=== PATIENT | female | born 1955 | race Caucasian/White ===

== ENCOUNTER 2019-02-10 14:32 | Emergency (ER) | payer BC ==
[~2019-02-10] VITALS: Ht 167.6 cm; Wt 83.9 kg
[2019-02-10] MEDS ORDERED: DICYCLOMINE 20 MG/2 ML AMPUL. IM ONE ×2 (15:15→16:30)
[2019-02-10] MEDS ORDERED: IV NORMAL SALINE 1000ML BAG 1,000 ML IV ONE (15:15)
[2019-02-10] MEDS ORDERED: fentaNYL PF VIAL 100 MCG/2 ML VIAL IV ONE (15:15)
--- NOTE | 2019-02-10 15:22 | PHYS DOC ---
Adult General Chief Complaint Chief Complaint: ABDOMINAL PAIN HPI HPI 63-year-old female presents to ER via POV from a local urgent care after she was evaluated for lower abdominal pain complaints. Patient had KUB done with report of "mild air-fluid levels suggestive of potential obstruction" and UA was negative. Per patient's notes from [facility] urgent care- patient reports her pain started on Wednesday and she's had intermittent nausea denying any vomiting episodes. Patient reports pain extends from side to side of the lower abdomen she denies any urinary or vaginal symptoms. Patient reports pain increases with movements, walking, sitting/standing, and when she hits bumps in her car. Patient denies pain radiates. Patient states pain is sharp and cramping. Patient denies any fever, chest pain or palpitations, or shortness of air. Patient states her pain does increase following meals approximately 30 minutes to one hour after eating and following bowel movements. Patient denies any dark tarry or bloody stools. Patient reports she had regular bowel movement today. Review of Systems Review of Systems Constitutional: Denies fever or chills [] Eyes: Denies change in visual acuity, redness, or eye pain [] HENT: Denies nasal congestion or sore throat [] Respiratory: Denies cough or shortness of breath [] Cardiovascular: No additional information not addressed in HPI [] GI: Denies vomiting, bloody stools or diarrhea. Reports intermittent nausea and lower abd pain from side to side w/increased pain in low/mid suprapubic abd : Denies dysuria or hematuria [] Musculoskeletal: Denies back pain or joint pain [] Integument: Denies rash or skin lesions [] Neurologic: Denies headache, focal weakness or sensory changes [] Endocrine: Denies polyuria or polydipsia [] All other systems were reviewed and found to be within normal limits, except as documented in this note. Current Medications Current Medications Current Medications Medications (Trade) Dose Ordered Sig/Jhoana Start Time Stop Time Status Last Admin Dose Admin Dicyclomine HCl (Bentyl) 20 mg 1X ONCE 02/10/19 16:30 02/10/19 16:32 DC 02/10/19 16:30 20 MG Fentanyl Citrate (Fentanyl 2ml Vial) 25 mcg 1X ONCE 02/10/19 15:15 02/10/19 15:17 DC 02/10/19 16:00 25 MCG Info (CONTRAST GIVEN -- Rx MONITORING) 1 each PRN DAILY PRN 02/10/19 16:45 02/10/19 18:43 DC Iohexol (Omnipaque 300 Mg/ml) 75 ml 1X ONCE 02/10/19 16:45 02/10/19 16:46 DC 02/10/19 16:41 75 ML Sodium Chloride 1,000 ml @ 1,000 mls/hr 1X ONCE 02/10/19 15:15 02/10/19 16:14 DC 02/10/19 16:00 1,000 MLS/HR Allergies Allergies Allergies Coded Allergies Type Severity Reaction Last Updated Verified No Known Drug Allergies 02/10/19 No Physical Exam Physical Exam Constitutional: Well developed, well nourished, no acute distress, non-toxic appearance. [] HENT: Normocephalic, atraumatic, oropharynx moist, no oral exudates, nose normal. [] Eyes: Pupils equal, conjunctiva normal, no discharge. [] Neck: Normal range of motion, no tenderness, supple, no stridor. [] Cardiovascular: Heart rate regular rhythm, no murmur [] Lungs & Thorax: Bilateral breath sounds clear to auscultation- resp. equal/nonlabored Abdomen: Bowel sounds normal, soft- no distention/rigidity, tender across mid to lower abd- no focal area or rebound, no masses, no pulsatile masses. [] Skin: Warm, dry, no erythema, no rash. [] Back: No tenderness, no CVA tenderness. [] Extremities: No tenderness, no cyanosis, no clubbing, ROM intact, no edema. [] Neurologic: Alert and oriented X 3, normal motor function, normal sensory function, no focal deficits noted. [] Psychologic: Affect normal, judgement normal, mood normal. [] Current Patient Data Vital Signs Vital Signs Date Time Temp Pulse Resp B/P (MAP) Pulse Ox O2 Delivery O2 Flow Rate FiO2 02/10/19 18:27 90 19 138/69 (92) 97 Room Air 02/10/19 14:53 99.4 99.4 Lab Values Laboratory Tests Test 02/10/19 15:50 02/10/19 17:00 White Blood Count 11.1 x10^3/uL (4.0-11.0) H Red Blood Count 4.12 x10^6/uL (3.50-5.40) Hemoglobin 13.0 g/dL (12.0-15.5) Hematocrit 38.2 % (36.0-47.0) Mean Corpuscular Volume 93 fL (79-100) Mean Corpuscular Hemoglobin 32 pg (25-35) Mean Corpuscular Hemoglobin Concent 34 g/dL (31-37) Red Cell Distribution Width 12.9 % (11.5-14.5) Platelet Count 168 x10^3/uL (140-400) Neutrophils (%) (Auto) 73 % (31-73) Lymphocytes (%) (Auto) 18 % (24-48) L Monocytes (%) (Auto) 7 % (0-9) Eosinophils (%) (Auto) 3 % (0-3) Basophils (%) (Auto) 1 % (0-3) Neutrophils # (Auto) 8.0 x10^3/uL (1.8-7.7) H Lymphocytes # (Auto) 2.0 x10^3/uL (1.0-4.8) Monocytes # (Auto) 0.7 x10^3/uL (0.0-1.1) Eosinophils # (Auto) 0.3 x10^3/uL (0.0-0.7) Basophils # (Auto) 0.1 x10^3/uL (0.0-0.2) Sodium Level 139 mmol/L (136-145) Potassium Level 3.5 mmol/L (3.5-5.1) Chloride Level 102 mmol/L (98-107) Carbon Dioxide Level 26 mmol/L (21-32) Anion Gap 11 (6-14) Blood Urea Nitrogen 18 mg/dL (7-20) Creatinine 0.8 mg/dL (0.6-1.0) Estimated GFR (Cockcroft-Gault) 72.7 BUN/Creatinine Ratio 23 (6-20) H Glucose Level 100 mg/dL (70-99) H Lactic Acid Level 1.3 mmol/L (0.4-2.0) Calcium Level 9.2 mg/dL (8.5-10.1) Total Bilirubin 0.4 mg/dL (0.2-1.0) Aspartate Amino Transferase (AST) 22 U/L (15-37) Alanine Aminotransferase (ALT) 38 U/L (14-59) Alkaline Phosphatase 82 U/L (46-116) Total Protein 7.8 g/dL (6.4-8.2) Albumin 3.8 g/dL (3.4-5.0) Albumin/Globulin Ratio 1.0 (1.0-1.7) Lipase 244 U/L (73-393) Urine Collection Type Void Urine Color Yellow Urine Clarity Clear Urine pH 6.0 Urine Specific [place] 1.015 Urine Protein Negative mg/dL (NEG-TRACE) Urine Glucose (UA) Negative mg/dL (NEG) Urine Ketones (Stick) Negative mg/dL (NEG) Urine Blood Negative (NEG) Urine Nitrite Negative (NEG) Urine Bilirubin Negative (NEG) Urine Urobilinogen Dipstick 0.2 mg/dL (0.2 mg/dL) Urine Leukocyte Esterase Negative (NEG) Urine RBC 0 /HPF (0-2) Urine WBC 0 /HPF (0-4) Urine Squamous Epithelial Cells Few /LPF Urine Bacteria 0 /HPF (0-FEW) Laboratory Tests 02/10/19 15:50 Laboratory Tests 02/10/19 15:50 EKG EKG [] Radiology/Procedures Radiology/Procedures PROCEDURE: CT ABD PELV W/ IV CONTRST ONLY PQRS Compliance Statement: One or more of the following individualized dose reduction techniques were utilized for this examination: 1. Automated exposure control 2. Adjustment of the mA and/or kV according to patient size 3. Use of iterative reconstruction technique CT abdomen/pelvis with contrast 02/10/2019 3:23 PM INDICATION: Abdominal pain. COMPARISON: None available TECHNIQUE: Multiple axial CT images of the abdomen and pelvis were obtained after the intravenous administration of 75 mL Omnipaque 300. Coronal and sagittal reformats are provided. FINDINGS: Left breast prosthesis is identified. There is bibasilar subsegmental atelectasis. Heart size is within normal limits. Geographic areas of hypoattenuation are identified within the right hepatic lobe. There is no distortion of the hepatic vessels. Consideration may be given for geographic areas of hepatic steatosis. Further evaluation with MRI may be of benefit to assess for any underlying neoplastic etiology. Splenic calcifications are present. Adrenal glands, pancreas and gallbladder are normal in appearance. The abdominal aorta is normal in course and caliber. There are no pathologically enlarged lymph nodes in the abdomen and pelvis. There is no abdominal free fluid. There is no free intraperitoneal air. There is mild circumferential wall thickening with pericolic inflammatory changes associated with moderate diverticulosis of the proximal sigmoid colon compatible with diverticulitis. There is no free intraperitoneal air or associated peridiverticular abscess. Oral contrast was administered. Opacified bowel loops demonstrate normal mucosal fold pattern. Appendix is normal in appearance. The kidneys enhance symmetrically. There is no suspicious renal mass. There is no hydronephrosis. There are no suspected calculi within the kidneys, ureters or urinary bladder. Urinary bladder is within normal limits given degree of distention. Uterus and adnexa are normal by CT. No suspicious osseous normality is identified. IMPRESSION: 1. Findings are compatible with mild diverticulitis of the sigmoid colon. No peridiverticular abscess or microperforation. 2. Geographic areas of hypoattenuation involving the hepatic parenchyma are nonspecific and may be associated with geographic fatty infiltration of the liver. Neoplastic etiologies less likely however further evaluation with MRI may be of benefit to confirm. Electronically signed by: Italia Austin MD (02/10/2019 4:57 PM) [id number] DICTATED and SIGNED BY: ITALIA AUSTIN MD DATE: 02/10/19 1657 Course & Med Decision Making Course & Med Decision Making Pertinent Labs and Imaging studies reviewed. (See chart for details) Patient was evaluated in the ER for complaints of lower abdominal pain. Patient had labs and CT obtained. Results were discussed with patient and her . WBCs normal limits 11.1 no bands. Lactic acid normal limits at 1.3. UA negative for infection. CT abd/pelvis with findings of diverticulitis with no free air or associated abscess and appendix was negative- this was discussed. Patient reports she has had some improvement in pain since receiving treatments in the ER. She has been afebrile and remains nontoxic in appearance. Offered admission for further care and monitoring however patient feels comfortable with home discharge with plans to follow-up outpatient. Discharge instructions and plans were discussed with patient with her at bedside. Will provide prescriptions for Flagyl and Cipro. Will also provide nausea and pain medication. Patient advised on need to follow-up with GI for reevaluation and further care along with her primary care physician. Will provide GI referral information on discharge paperwork. At time of discharge discussion patient was in no visible distress education provided on signs and symptoms to return to ER for. Informed patient of CT findings of area on liver which would need f/u- her LFTs were NL and she was having no rt sided abd pain. Dragon Disclaimer Dragon Disclaimer This electronic medical record was generated, in whole or in part, using a voice recognition dictation system. Departure Departure Impression: Primary Impression: Diverticulitis Additional Impression: Abdominal pain Disposition: 01 HOME, SELF-CARE Condition: STABLE Referrals: HAYDER BAINS MD Patient Instructions: Abdominal Pain, Diverticulitis Additional Instructions: Follow up with your primary care physician and or a gastrointestinal doctor for reevaluation and further care. Drink plenty of water. Avoid alcohol or other food/meds which can be irritating to the GI tract which does include NSAIDs. You can take [id number] probiotics while taking the antibiotics as directed on container. Scripts Metronidazole (FLAGYL) 500 Mg Tablet 1 TAB PO BID, #14 TAB 0 Refills Avoid alcohol while taking this medication and for 3 days following completion of entire prescription Prov: NOMI KING APRN 02/10/19 Ciprofloxacin Hcl (CIPRO) 500 Mg Tablet 1 TAB PO BID, #14 TAB 0 Refills Prov: NOMI KING APRN 02/10/19 Hydrocodone/Apap 5-325 (NORCO 5-325 TABLET) 1 Each Tablet 1 TAB PO PRN Q6HRS PRN for PAIN, #12 TAB 0 Refills Use for severe pain Prov: NOMI KING APRN 02/10/19 Dicyclomine Hcl (DICYCLOMINE HCL) 10 Mg Capsule 1 CAP PO PRN Q6HRS PRN for PAIN, #14 CAP 0 Refills Prov: NOMI KING APRN 02/10/19 Ondansetron (ONDANSETRON ODT) 4 Mg Tab.rapdis 1 TAB PO PRN Q6-8HRS PRN for NAUSEA, #12 TAB 0 Refills Prov: NOMI KING APRN 02/10/19 Problem Qualifiers NOMI KING APRN Feb 10, 2019 15:22
[2019-02-10 16:13] LABS: BASO # 0.1 x10^3/uL (0.0-0.2); BASO % 1 % (0-3); EOS # 0.3 x10^3/uL (0.0-0.7); EOS % 3 % (0-3); HEMATOCRIT 38.2 % (36.0-47.0); LYMPH % 18 % (24-48); MEAN CORPUSCULAR HEMOGLOBIN 32 pg (25-35); MEAN CORPUSCULAR HGB CONC 34 g/dL (31-37); MEAN CORPUSCULAR VOLUME 93 fL (79-100); MONO # 0.7 x10^3/uL (0.0-1.1); MONO % 7 % (0-9); NEUT % 73 % (31-73); PLATELET COUNT 168 x10^3/uL (140-400); RED BLOOD COUNT 4.12 x10^6/uL (3.50-5.40); RED CELL DISTRIBUTION WIDTH 12.9 % (11.5-14.5); WHITE BLOOD COUNT 11.1 x10^3/uL (4.0-11.0)
[2019-02-10 16:27] LABS: CALCIUM 9.2 mg/dL (8.5-10.1); CREATININE 0.8 mg/dL (0.6-1.0); GFR 72.7; POTASSIUM 3.5 mmol/L (3.5-5.1)
[2019-02-10 16:33] LABS: ALBUMIN 3.8 g/dL (3.4-5.0); TOTAL BILIRUBIN 0.4 mg/dL (0.2-1.0); TOTAL PROTEIN 7.8 g/dL (6.4-8.2)
[2019-02-10] MEDS ORDERED: CONTRAST GIVEN. MC PRN (16:45)
[2019-02-10] MEDS ORDERED: IOHEXOL 300 MG/ML 100ML VIAL. IV ONE (16:45)
--- NOTE | 2019-02-10 17:00 | RAD ---
PQRS Compliance Statement: One or more of the following individualized dose reduction techniques were utilized for this examination: 1. Automated exposure control 2. Adjustment of the mA and/or kV according to patient size 3. Use of iterative reconstruction technique CT abdomen/pelvis with contrast 02/10/2019 3:23 PM INDICATION: Abdominal pain. COMPARISON: None available TECHNIQUE: Multiple axial CT images of the abdomen and pelvis were obtained after the intravenous administration of 75 mL Omnipaque 300. Coronal and sagittal reformats are provided. FINDINGS: Left breast prosthesis is identified. There is bibasilar subsegmental atelectasis. Heart size is within normal limits. Geographic areas of hypoattenuation are identified within the right hepatic lobe. There is no distortion of the hepatic vessels. Consideration may be given for geographic areas of hepatic steatosis. Further evaluation with MRI may be of benefit to assess for any underlying neoplastic etiology. Splenic calcifications are present. Adrenal glands, pancreas and gallbladder are normal in appearance. The abdominal aorta is normal in course and caliber. There are no pathologically enlarged lymph nodes in the abdomen and pelvis. There is no abdominal free fluid. There is no free intraperitoneal air. There is mild circumferential wall thickening with pericolic inflammatory changes associated with moderate diverticulosis of the proximal sigmoid colon compatible with diverticulitis. There is no free intraperitoneal air or associated peridiverticular abscess. Oral contrast was administered. Opacified bowel loops demonstrate normal mucosal fold pattern. Appendix is normal in appearance. The kidneys enhance symmetrically. There is no suspicious renal mass. There is no hydronephrosis. There are no suspected calculi within the kidneys, ureters or urinary bladder. Urinary bladder is within normal limits given degree of distention. Uterus and adnexa are normal by CT. No suspicious osseous normality is identified. IMPRESSION: 1. Findings are compatible with mild diverticulitis of the sigmoid colon. No peridiverticular abscess or microperforation. 2. Geographic areas of hypoattenuation involving the hepatic parenchyma are nonspecific and may be associated with geographic fatty infiltration of the liver. Neoplastic etiologies less likely however further evaluation with MRI may be of benefit to confirm. Electronically signed by: Miryam Austin MD (02/10/2019 4:57 PM) [id number]
[2019-02-10 17:09] LABS: BILIRUBIN,URINE NEGATIVE (NEG); CLARITY,URINE CLEAR; COLOR,URINE YELLOW; NITRITE,URINE NEGATIVE (NEG); PROTEIN,URINE NEGATIVE (NEG-TRACE); UROBILINOGEN,URINE 0.2 mg/dL (0.2 mg/dL)
[2019-02-10 17:21] LABS: BACTERIA,URINE 0 /HPF (0-FEW); RBC,URINE 0 /HPF (0-2); SQUAMOUS EPITHELIAL CELL,UR FEW /LPF; WBC,URINE 0 /HPF (0-4)
[2019-02-10] MEDS ORDERED: CIPR500T94 PO (18:16)
[2019-02-10] MEDS ORDERED: ONDA4TAB12 PO (18:16)
[2019-02-10] MEDS ORDERED: DICY10CA3 PO (18:16)
[2019-02-10] MEDS ORDERED: METR500T PO (18:16)
[2019-02-10] MEDS ORDERED: HYDR-3164 PO (18:16)
[2019-02-10 18:27] VITALS: BP 138/69
== END 2019-02-10 18:40 | disposition home or self-care (01) ==
LOC: ER 14:32
DX: K57.32 Diverticulitis of large intestine without perforation or abscess without bleeding (principal); R11.0 Nausea
CPT/HCPCS: 36415; 74177; 80053; 81001; 83605; 83690; 85025; 96372; 96374; 99285; J0500; J3010; J7030; Q9967